=== PATIENT | male | born 1995 | race Caucasian/White ===

== ENCOUNTER 2018-12-13 19:16 | Emergency (ER) | payer OTHER ==
[~2018-12-13] VITALS: Ht 170.2 cm; Wt 102.3 kg
[2018-12-13 19:17] VITALS: BP 157/73
[2018-12-13] MEDS ORDERED: IBUP-1022 PO (19:25)
--- NOTE | 2018-12-13 20:08 | REP ---
Chest x-ray: Two views. History: Cough and shortness of breath . Comparison study: No comparison . Findings: The lungs are well inflated and free of infiltrate. The pleural angles are sharp. The heart size is normal. Pulmonary vasculature is not increased. No significant bony abnormality is seen. Impression: Negative chest x-ray. Electronically Signed by Jesus Emmanuel MD 12/13/2018 07:59 P
[2018-12-13 20:34] LABS: INFLUENZA A AMPLIFICATION POSITIVE (NEGATIVE); INFLUENZA B AMPLIFICATION NEGATIVE (NEGATIVE)
[2018-12-13] MEDS ORDERED: BENZ200C70 PO (20:45)
[2018-12-13] MEDS ORDERED: VENTAER INH (20:45)
[2018-12-13] MEDS ORDERED: BENZONATATE 100 MG CAP PO ONE (20:45)
== END 2018-12-13 20:51 | disposition home or self-care (01) ==
LOC: M ED 19:16
DX: J09.X2 Influenza due to identified novel influenza A virus with other respiratory manifestations (principal)

== ENCOUNTER 2019-09-21 20:36 | Emergency (ER) | payer OTHER ==
[~2019-09-21] VITALS: Ht 170.2 cm; Wt 114.7 kg
[2019-09-21 20:36] VITALS: BP 126/77
[~2019-09-21 20:36] MED LIST: BENZ200C70 PO; IBUP-1022 PO; VENTAER INH
[2019-09-21] MEDS ORDERED: FLUORESCEIN OPHTH 1 MG STRIP OU ONE (23:45)
[2019-09-22] MEDS ORDERED: CIPROFLOXACIN 0.3% OPHTH SOLN 2.5ML OU ONE
[2019-09-22] MEDS ORDERED: CIPR0.3S OU ×2 (00:04→00:44)
== END 2019-09-22 00:54 | disposition home or self-care (01) ==
LOC: M ED 20:36
DX: S05.01XA Injury of conjunctiva and corneal abrasion without foreign body, right eye, initial encounter (principal); Y92.9 Unspecified place or not applicable; Y93.9 Activity, unspecified; Z79.51 Long term (current) use of inhaled steroids; Z79.899 Other long term (current) drug therapy